=== PATIENT | female | born 1980 | race Caucasian/White ===

== ENCOUNTER 2017-01-17 08:38 | Emergency (ER) | payer BC, OTHER, SELFPAY ==
[~2017-01-17 08:38] MED LIST: LEVAQUIN500 MG PO; PHENERGAN25 MG; VICODIN 5/500 T1 TAB PO
[2017-01-17] MEDS ORDERED: BCP (08:46)
[2017-01-17] MEDS ORDERED: PREDNISONE20 M1 PO (09:14)
[2017-01-17] MEDS ORDERED: NORCO 5/3251 TAB PO (09:14)
== END 2017-01-17 09:30 ==
LOC: EDMED 08:38
DX: M54.12 Radiculopathy, cervical region (principal); F17.210 Nicotine dependence, cigarettes, uncomplicated
CPT/HCPCS: J1885

== ENCOUNTER 2017-01-26 13:43 | Emergency (ER) | payer BC, OTHER, SELFPAY ==
[~2017-01-26 13:43] MED LIST changes: +BCP; +NORCO 5/3251 TAB PO; +PREDNISONE20 M1 PO
[2017-01-26] MEDS ORDERED: TRINESSA TABLE1 EACH PO (14:24)
[2017-01-26] MEDS ORDERED: NORCO 10-325 T1 EACH PO (14:24)
[2017-01-26] MEDS ORDERED: DELTASONE20 MG PO (14:26)
[2017-01-26] MEDS ORDERED: ZOFRAN4 M2 PO (17:21)
[2017-01-26] MEDS ORDERED: PERCOCET 5-3251 EACH PO (17:21)
== END 2017-01-26 17:50 ==
LOC: EDMED 13:43
DX: M50.122 Cervical disc disorder at C5-C6 level with radiculopathy (principal); F17.210 Nicotine dependence, cigarettes, uncomplicated
CPT/HCPCS: J2270